=== PATIENT | male | born 1990 | race African-American/Black ===

== ENCOUNTER 2018-10-20 15:03 | Emergency (ER) | payer SELFPAY ==
[2018-10-20 15:04] VITALS: BP 146/82; PULSE 71; RESP 17; TEMP 36.8; O2SAT 99; BMI 34.4
--- NOTE | 2018-10-20 15:38 | ED.VIS.GEN ---
History of Present Illness Chief Complaint: Eye Problem Informant: Patient Onset: Today, Days - 3 Current Severity: Moderate Maximum Severity: Moderate Narrative: Presents with left eye pain. [facility] he recently was diagnosed with pinkeye and forgot his prescription when he came here. He endorses similar symptoms no fever chills cough or congestion. He has no visual changes he just has a red itchy left eye. Past Medical History - Allergies and Home Meds Allergies/Adverse Reactions: Allergies No Known Allergies Allergy (Verified 10/20/18 15:04) Primary Care Physician: Nikki GavinOut of [Primary Care Provider] - Past Medical History: None Lives: Alone Review of Systems All systems negative except as indicated General: Denies: Fever Eyes: Reports: - - Left right eye is in HPI. Denies: Visual changes - left ENT: Denies: Rhinorrhea, Sore throat Respiratory: Denies: Dyspnea Neurological: Denies: Headache, Weakness Physical Exam Vital Signs/Narrative: Vital Signs Temp Pulse Resp BP Pulse Ox 10/20/18 15:04 98.3 F 71 17 146/82 H 99 General: Well nourished, Well developed Eyes: - - Left eye conjunctivitis, there is conjunctival injection, pupils are equal reactive. ENT: Negative for: Nasal congestion, Sinus tenderness Neck: Negative for: Supple Cardiovascular: Negative for: Regular rate Respiratory: Negative for: No distress, CTA bilaterally Extremities: Negative for: Nontender, No edema Skin: Negative for: Normal color Neurological: Negative for: Alert, Oriented x3 Diagnostic/Tx/Re-eval - Medical Decision Making Patient will be given antibiotic ointment from the emergency department. I will discharge him with reassurance. Discharge stable condition ED Disposition - Plan for ED Patient: Disposition: Home or Assisted Living Instructions: CONJUNCTIVITIS, Bacterial Referrals: Nikki Gavin,Out of [Primary Care Provider] - 3-5 Days
[2018-10-20] MEDS: Tobramycin Sulf 0.3% 5ML OPTH.BTL 1 DRP LEFT EYE (15:57)
== END 2018-10-20 16:05 | disposition home or self-care (01) ==
LOC: ED 15:46
PROVIDERS: Emergency Provider Emergency Medicine
DX: H10.9 Unspecified conjunctivitis (principal)
CPT/HCPCS: 99282